=== PATIENT | female | born 1965 | race African-American/Black ===

== ENCOUNTER 2016-12-26 22:32 | Emergency (ER) | payer OTHER ==
[~2016-12-26] VITALS: Ht 167.6 cm; Wt 86.2 kg
[2016-12-26 22:45] VITALS: BP 169/61
[2016-12-26] MEDS ORDERED: HYDROcodone/APAP 5/325MG 1 TAB TABLET PO ONE (22:45)
[2016-12-26] MEDS ORDERED: ONDANSETRON ODT 4 MG TAB.RAPDIS. PO ONE (22:45)
--- NOTE | 2016-12-26 23:16 | RAD ---
CT head without contrast: Reason for examination: Head injury. Hit with baseball. Axial images were obtained through the brain. No contrast was administered. Exposure: One or more of the following individualized dose reduction techniques were utilized for this examination: 1. Automated exposure control 2. Adjustment of the mA and/or kV according to patient size 3. Use of iterative reconstruction technique. Ventricular systems are symmetric and not abnormally dilated. No midline shift is seen. There is no evidence of intracranial hemorrhage, infarct, mass or edema. No abnormalities are seen at the orbits. The paranasal sinuses and mastoid air cells are clear. No acute fractures seen in the skull. There is soft tissue edema in the left frontal convexity. IMPRESSION: No acute intracranial abnormality. Soft tissue edema at the left frontal convexly. Electronically signed by: Ying Stewart MD (12/26/2016 11:12 PM) [facility]
--- NOTE | 2016-12-27 01:29 | PHYS DOC ---
Past Medical History Past Medical History: Hypertension Past Surgical History: Hysterectomy Alcohol Use: None Drug Use: None Adult General Chief Complaint Chief Complaint: HEAD INJURY/TRAUMA HPI HPI Patient is a 51 year old AA female who presents with head injury after being struck on the top of her head by a baseball during local baseball game. Patient was in the process of accident. Stating when she was struck by an apparent fall. Patient denies loss of consciousness, reports feeling dizzy and lightheaded with nausea and persistent headache. Injury occurred just prior to ED arrival. On exam, the patient has an apical left parietal scalp hematoma. There is no visible bleeding or abrasions. Patient denies neck pain. She is not on anticoagulation therapy. Review of Systems Review of Systems Review symptoms as per history of present illness. All other review symptoms are negative. Current Medications Current Medications Current Medications Medications (Trade) Dose Ordered Sig/Bere Start Time Stop Time Status Last Admin Dose Admin Acetaminophen/ Hydrocodone Bitart (Lortab 5/325) 1 tab 1X ONCE 12/26/16 22:45 12/26/16 22:46 DC 12/26/16 22:44 1 TAB Ondansetron HCl (Zofran Odt) 4 mg 1X ONCE 12/26/16 22:45 12/26/16 22:46 DC 12/26/16 22:44 4 MG Allergies Allergies Allergies Coded Allergies Type Severity Reaction Last Updated Verified No Known Drug Allergies 12/26/16 No Physical Exam Physical Exam Constitutional: Well developed, well nourished, no acute distress, non-toxic appearance. [] HENT: Normocephalic, left apical arrival scalp hematoma, bilateral external ears normal, oropharynx moist, no oral exudates, nose normal. [] Eyes: PERRLA, EOMI, conjunctiva normal, no discharge. [] Neck: Normal range of motion, no tenderness, supple, no stridor. [] Extremities: No tenderness, no cyanosis, no clubbing, ROM intact, no edema. [] Neurologic: Alert and oriented X 3, renal nerves II through XII grossly intact, normal motor function, normal sensory function, no focal deficits noted. [] Psychologic: Affect normal, judgement normal, mood normal. [] Current Patient Data Vital Signs Vital Signs Date Time Temp Pulse Resp B/P (MAP) Pulse Ox O2 Delivery O2 Flow Rate FiO2 12/26/16 22:45 98.5 98 18 169/61 (97) 96 Nasal Cannula 98.5 EKG EKG [] Radiology/Procedures Radiology/Procedures [CT head: No acute intracranial tree. Soft tissue injury noted per radiology report] Course & Med Decision Making Course & Med Decision Making Pertinent Labs and Imaging studies reviewed. (See chart for details) [No focal neurologic deficits, decreased LOC. CT head nonacute. Pain addressed while in the emergency department. Typical closed head injury instructions given. Patient verbalized understanding agreement discharge instructions prior to departure.] Dragon Disclaimer Dragon Disclaimer This electronic medical record was generated, in whole or in part, using a voice recognition dictation system. Departure Departure Impression: Primary Impression: Concussion syndrome Disposition: HOME, SELF-CARE Condition: GOOD Patient Instructions: Concussion and Brain Injury, [id number] Additional Instructions: You were evaluated in the emergency department for head injury. A CT scan was performed which does not show evidence of an acute skull or brain injury. Your symptoms are consistent with a concussion syndrome. Please go home and rest, and take ibuprofen for pain and tramadol as needed for additional relief. Take Zofran for nausea. Stay home from work the next 2 days and follow-up with your PCP if symptoms persist. In the meantime, if you develop new or worsening symptoms, please return to the emergency department. MIGUEL MORROW DO Dec 27, 2016 01:28
== END 2016-12-27 00:05 | disposition home or self-care (01) ==
LOC: ER 23:08
DX: S06.0X0A Concussion without loss of consciousness, initial encounter (principal); I10 Essential (primary) hypertension; W21.03XA Struck by baseball, initial encounter; Y93.64 Activity, baseball; Y99.8 Other external cause status; Y92.89 Other specified places as the place of occurrence of the external cause
CPT/HCPCS: 70450; 99284; Q0162

== ENCOUNTER 2016-12-28 12:05 | Emergency (ER) | payer OTHER ==
[~2016-12-28] VITALS: Ht 167.6 cm; Wt 86.2 kg
--- NOTE | 2016-12-28 14:24 | RAD ---
Indication head injury 2 days previously. Persistent pain. Noncontrast images of the head were obtained and are compared to an examination 2 days previously. The calvarium appears unremarkable. Some soft tissue swelling over the left frontal bone is noted. There is no subdural or epidural hematoma. The ventricles and sulci are within normal limits. There is no mass or midline shift. No acute intracranial finding is seen. IMPRESSION: No acute intracranial finding PQRS Compliance Statement: One or more of the following individualized dose reduction techniques were utilized for this examination: 1. Automated exposure control 2. Adjustment of the mA and/or kV according to patient size 3. Use of iterative reconstruction technique
[2016-12-28 16:00] VITALS: BP 141/84
--- NOTE | 2016-12-28 18:27 | ED.ADGEN ---
Past Medical History Past Medical History: Hypertension Past Surgical History: Hysterectomy Alcohol Use: None Drug Use: None Adult General Chief Complaint Chief Complaint: HEADACHE HPI HPI Patient is a 51 year old woman, history of hypertension, who presents to the emergency department with a complaint of "soreness and softness", of the crown region of her scalp, and a mild headache, with occasional mild blurry vision. Patient states that she was struck on the head with a baseball on Tuesday, she was seen in the emergency department that time his CT performed that revealed a "hematoma". Patient states she's are primary care provider today, and due to the persistent headache was told to come to the ED for reevaluation. Patient denies any weakness, numbness or tingling, any nausea or vomiting, any chest pain or shortness of breath, any neck pain, any disequilibrium, any additional injuries, any blurred vision at this time. States the headache is located mostly in the top of her head. She has not taken any medication for pain prior to coming to the ED. Review of Systems Review of Systems Constitutional: Denies fever or chills. [] Eyes: Denies change in visual acuity. [] HENT: Denies nasal congestion or sore throat. [] Respiratory: Denies cough or shortness of breath. [] Cardiovascular: Denies chest pain or edema. [] GI: Denies abdominal pain, nausea, vomiting, bloody stools or diarrhea. [] : Denies dysuria. [] Musculoskeletal: Denies back pain or joint pain. [] Integument: Denies rash. [] Neurologic: Denies focal weakness or sensory changes. Headache, soreness of the scalp and "softness", the crown of the head. Endocrine: Denies polyuria or polydipsia. [] Lymphatic: Denies swollen glands. [] Psychiatric: Denies depression or anxiety. [] Allergies Allergies Allergies Coded Allergies Type Severity Reaction Last Updated Verified No Known Drug Allergies 12/26/16 No Physical Exam Physical Exam Constitutional: Well developed, well nourished, no acute distress, non-toxic appearance. [] HENT: Normocephalic, atraumatic, bilateral external ears normal, oropharynx moist, no oral exudates, nose normal. [] Eyes: PERRLA, EOMI, conjunctiva normal, no discharge. [] Neck: Normal range of motion, no tenderness, supple, no stridor. [] Cardiovascular:Heart rate regular rhythm, no murmur, S1, S2, rubs or gallops. [] Lungs & Thorax: Bilateral breath sounds clear to auscultation, no wheezing, rhonchi, rales. No chest or crepitus or tenderness. [] Abdomen: Bowel sounds normal, soft, no tenderness, no rebound, rigidity, no guarding, no masses, no pulsatile masses. [] Extremities: No tenderness, no cyanosis, no clubbing, ROM intact, no edema. [] Neurologic: Alert and oriented X 3, normal motor function, normal sensory function, no focal deficits noted. [] Psychologic: Affect normal, judgement normal, mood normal. [] Current Patient Data Vital Signs Vital Signs Date Time Temp Pulse Resp B/P (MAP) Pulse Ox O2 Delivery O2 Flow Rate FiO2 12/28/16 16:00 18 141/84 (103) 100 Room Air 12/28/16 13:55 98.3 87 98.3 EKG EKG Not indicated.[] Radiology/Procedures Radiology/Procedures [][facility] [address] [place] [address] IMAGING REPORT Signed PATIENT: CHEMA LARKIN ACCOUNT: [id number] : 1965 LOCATION: ER AGE: 51 SEX: F EXAM STATUS: REG ER ORD. PHYSICIAN: DWIGHT SALDANA APRN REASON: headache PROCEDURE: CT HEAD WO CONTRAST Indication head injury 2 days previously. Persistent pain. Noncontrast images of the head were obtained and are compared to an examination 2 days previously. The calvarium appears unremarkable. Some soft tissue swelling over the left frontal bone is noted. There is no subdural or epidural hematoma. The ventricles and sulci are within normal limits. There is no mass or midline shift. No acute intracranial finding is seen. IMPRESSION: No acute intracranial finding PQRS Compliance Statement: One or more of the following individualized dose reduction techniques were utilized for this examination: 1. Automated exposure control 2. Adjustment of the mA and/or kV according to patient size 3. Use of iterative reconstruction technique DICTATED and SIGNED BY: NYDIA MATA MD DATE: 12/28/16 1215 CC: DWIGHT SALDANA APRN; NON,STAFF; BRANDEE DOUGLAS APRN ~ Course & Med Decision Making Course & Med Decision Making Pertinent Labs and Imaging studies reviewed. (See chart for details) Patient well-appearing, with a normal neurologic examination, ambulating without difficulty in the ED. Is reading a book in the emergency department without issue. CT of the head obtained which not reveal any evidence of intercranial normalities, a small amount of frontal soft tissue swelling was noted. I was unable to palpate any masses, hematoma, or other concerning findings and the patient's scalp. Did discuss postconcussive symptoms with precautions, and advised her to rest her eyes, and follow the other instructions as stated. Patient is relieved by these findings, and agreeable with plan as stated. We also discussed concerning symptoms that prompt return to the ED. Patient was given copies of both of her CTs, along with clear and detailed return and follow-up instructions with which she voiced understanding and agreement. Dragon Disclaimer Dragon Disclaimer This electronic medical record was generated, in whole or in part, using a voice recognition dictation system. Departure Impression: Primary Impression: Concussion syndrome Disposition: 01 HOME, SELF-CARE Condition: STABLE JORGE FUNES DO Dec 28, 2016 18:27
== END 2016-12-28 16:45 | disposition home or self-care (01) ==
LOC: ER 12:05
DX: F07.81 Postconcussional syndrome (principal); I10 Essential (primary) hypertension; G56.00 Carpal tunnel syndrome, unspecified upper limb; W21.03XA Struck by baseball, initial encounter; Y93.89 Activity, other specified; Y99.8 Other external cause status; Y92.89 Other specified places as the place of occurrence of the external cause
CPT/HCPCS: 70450; 99284-25